=== PATIENT | male | born 1965 | race Caucasian/White ===

== ENCOUNTER 2017-07-10 18:13 | Emergency (ER) | payer OTHER ==
[2017-07-10 18:16] VITALS: BP 176/97; PULSE 96; RESP 18; TEMP 98.5; O2SAT 97
[2017-07-10] MEDS ORDERED: SODIUM CHLORIDE 0.9% FLUSH 10 ML FLUSH IVF PRN (18:45)
--- NOTE | 2017-07-10 19:17 | RADRPT ---
EXAM DATE/TIME: 07/10/2017 18:50 [place] COMPARISON: No previous studies available for comparison. INDICATIONS : Shortness of breath. MEDICAL HISTORY : None. SURGICAL HISTORY : None. ENCOUNTER: Initial ACUITY: 3 days PAIN SCORE: 0/10 LOCATION: Bilateral chest FINDINGS: A single view of the chest demonstrates the lungs to be symmetrically aerated without evidence of mas s, infiltrate or effusion. The cardiomediastinal contours are unremarkable. Osseous structures are intact. CONCLUSION: The lungs are clear. Tal Deshpande MD on July 10, 2017 at 19:15 Board Certified Radiologist. This report was verified electronically.
[2017-07-10 19:27] VITALS: O2SAT 98
[2017-07-10] MEDS ORDERED: methylPREDNISolone SOD SUCC 125 MG/2 ML VIAL IV PUSH ONE (19:30)
[2017-07-10] MEDS ORDERED: RESP: BUDESONIDE 0.5 MG/2 ML NEB NEB ONE (19:30)
[2017-07-10] MEDS: RESP: ALBUTEROL 2.5 MG/IPRATROPIUM 0.5 MG NEB (SCH) INH ×2 (19:46→19:47)
[2017-07-10 20:03] LABS: AUTOMATED NEUTROPHIL # 5.1 TH/MM3 (1.8-7.7); BASOPHIL # 0.1 TH/MM3 (0-0.2); BASOPHIL % 0.9 % (0.0-2.0); EOSINOPHIL # 0.3 TH/MM3 (0-0.4); EOSINOPHIL % 4.6 % (0.0-4.0); HEMATOCRIT 44.6 % (39.0-51.0); LYMPH % 19.2 % (9.0-44.0); LYMPHOCYTE # 1.4 TH/MM3 (1.0-4.8); MEAN CELL VOLUME 89.2 FL (80.0-100.0); MEAN CORPUSCULAR HEMOGLOBIN 30.1 PG (27.0-34.0); MEAN CORPUSCULAR HGB CONC 33.8 % (32.0-36.0); MEAN PLATELET VOLUME 9.4 FL (7.0-11.0); MONO % 7.1 % (0.0-8.0); MONOCYTE # 0.5 TH/MM3 (0-0.9); NEUT % 68.2 % (16.0-70.0); PLATELET COUNT 211 TH/MM3 (150-450); RED CELL DISTRIBUTION WIDTH 13.5 % (11.6-17.2); WHITE BLOOD COUNT 7.5 TH/MM3 (4.0-11.0)
[2017-07-10 20:29] LABS: ALBUMIN 3.7 GM/DL (3.4-5.0); AST (GOT) 17 U/L (15-37); BICARBONATE 25.5 MEQ/L (21.0-32.0); BLOOD UREA NITROGEN 16 MG/DL (7-18); CALCIUM 8.6 MG/DL (8.5-10.1); CHLORIDE 105 MEQ/L (98-107); CREATININE 1.15 MG/DL (0.60-1.30); GLOMERULAR FILTRATION RATE 67 ML/MIN (>89); GLUCOSE,RANDOM 97 MG/DL (74-106); SODIUM (NA) 140 MEQ/L (136-145)
[2017-07-10 20:33] LABS: ALKALINE PHOSPHATASE 59 U/L (45-117); ALT (GPT) 18 U/L (12-78); TOTAL PROTEIN 7.9 GM/DL (6.4-8.2)
[2017-07-10] MEDS ORDERED: PRED50 PO (21:10)
[2017-07-10] MEDS ORDERED: VENTAER INH (21:10)
[2017-07-10] MEDS ORDERED: AZIT250T3 PO (21:10)
--- NOTE | 2017-07-10 21:10 | PD ---
HPI Chief Complaint: Respiratory Distress Time Seen by Provider: 19:10 Travel History International Travel<30 days: No Contact w/Intl Traveler<30days: No Traveled to known affect area: No History of Present Illness HPI Patient is a 51-year-old male presenting to the emergency department evaluation of shortness of breath. Patient states it started 3 days ago after he was pressure washing. He reports an associated cough that is productive with clear sputum. He denies any fever, chills, sore throat, nasal congestion. He denies any significant past medical history. He has a history of tobacco use as well as significant exposure to secondhand smoke. [facility] Past Medical History Medical History: Denies Significant Hx Diminished Hearing: No Tetanus Vaccination: Unknown Influenza Vaccination: No Social History Alcohol Use: Yes Tobacco Use: No Substance Use: Yes (CANNABIS) Allergies-Medications (Allergen,Severity, Reaction): Coded Allergies: cat dander (Verified Allergy, Intermediate, 07/10/17) Reported Meds & Prescriptions Reported Meds & Active Scripts Active No Active Prescriptions or Reported Medications Review of Systems Except as stated in HPI: all other systems reviewed are Neg General / Constitutional: No: Fever HENT: No: Headaches Cardiovascular: No: Chest Pain or Discomfort Respiratory: Positive: Cough, Shortness of Breath, Wheezing Gastrointestinal: No: Nausea, Vomiting Physical Exam Narrative GENERAL: Well-developed, well-nourished, alert male. Resting comfortably in no acute distress. SKIN: Warm and dry. HEAD: Atraumatic. Normocephalic. EYES: Pupils equal and round. No scleral icterus. No injection or drainage. ENT: No nasal bleeding or discharge. Mucous membranes pink and moist. NECK: Trachea midline. No JVD. CARDIOVASCULAR: Regular rate and rhythm. RESPIRATORY: No accessory muscle use. Expiratory wheezes throughout. No increased work of breathing, no nasal flaring, no retractions noted. GASTROINTESTINAL: Abdomen soft, non-tender, nondistended. Hepatic and splenic margins not palpable. MUSCULOSKELETAL: Extremities without clubbing, cyanosis, or edema. No obvious deformities. NEUROLOGICAL: Awake and alert. No obvious cranial nerve deficits. Motor grossly within normal limits. Five out of 5 muscle strength in the arms and legs. Normal speech. PSYCHIATRIC: Appropriate mood and affect; insight and judgment normal. Data Data Last Documented VS Vital Signs Date Time Temp Pulse Resp B/P (MAP) Pulse Ox O2 Delivery O2 Flow Rate FiO2 12/19/17 19:27 98 Nasal Cannula 2.00 07/10/17 19:27 07/10/17 18:16 98.5 96 18 Orders Orders Complete Blood Count With Diff (07/10/17 18:41) Comprehensive Metabolic Panel (07/10/17 18:41) Iv Access Insert/Monitor (07/10/17 18:41) Ecg Monitoring (07/10/17 18:41) Oximetry (07/10/17 18:41) Oxygen Administration (07/10/17 18:41) Chest, Single Ap (07/10/17 18:41) Sodium Chloride 0.9% Flush (Ns Flush) (07/10/17 18:45) Methylprednisolone So Succ Inj (Solumedr (07/10/17 19:30) Albuterol-Ipratropium Neb (Duoneb Neb) (07/10/17 19:30) Budesonide Neb (Pulmicort Respule Neb) (07/10/17 19:30) Labs Laboratory Tests Test 07/10/17 19:18 White Blood Count 7.5 TH/MM3 Red Blood Count 5.00 MIL/MM3 Hemoglobin 15.0 GM/DL Hematocrit 44.6 % Mean Corpuscular Volume 89.2 FL Mean Corpuscular Hemoglobin 30.1 PG Mean Corpuscular Hemoglobin Concent 33.8 % Red Cell Distribution Width 13.5 % Platelet Count 211 TH/MM3 Mean Platelet Volume 9.4 FL Neutrophils (%) (Auto) 68.2 % Lymphocytes (%) (Auto) 19.2 % Monocytes (%) (Auto) 7.1 % Eosinophils (%) (Auto) 4.6 % Basophils (%) (Auto) 0.9 % Neutrophils # (Auto) 5.1 TH/MM3 Lymphocytes # (Auto) 1.4 TH/MM3 Monocytes # (Auto) 0.5 TH/MM3 Eosinophils # (Auto) 0.3 TH/MM3 Basophils # (Auto) 0.1 TH/MM3 CBC Comment DIFF FINAL Differential Comment Blood Urea Nitrogen 16 MG/DL Creatinine 1.15 MG/DL Random Glucose 97 MG/DL Total Protein 7.9 GM/DL Albumin 3.7 GM/DL Calcium Level 8.6 MG/DL Alkaline Phosphatase 59 U/L Aspartate Amino Transf (AST/SGOT) 17 U/L Alanine Aminotransferase (ALT/SGPT) 18 U/L Total Bilirubin 1.0 MG/DL Sodium Level 140 MEQ/L Potassium Level 3.6 MEQ/L Chloride Level 105 MEQ/L Carbon Dioxide Level 25.5 MEQ/L Anion Gap 10 MEQ/L Estimat Glomerular Filtration Rate 67 ML/MIN MDM Medical Decision Making Medical Screen Exam Complete: Yes Emergency Medical Condition: Yes Interpretation(s) Laboratory Tests Test 07/10/17 19:18 White Blood Count 7.5 TH/MM3 Red Blood Count 5.00 MIL/MM3 Hemoglobin 15.0 GM/DL Hematocrit 44.6 % Mean Corpuscular Volume 89.2 FL Mean Corpuscular Hemoglobin 30.1 PG Mean Corpuscular Hemoglobin Concent 33.8 % Red Cell Distribution Width 13.5 % Platelet Count 211 TH/MM3 Mean Platelet Volume 9.4 FL Neutrophils (%) (Auto) 68.2 % Lymphocytes (%) (Auto) 19.2 % Monocytes (%) (Auto) 7.1 % Eosinophils (%) (Auto) 4.6 % Basophils (%) (Auto) 0.9 % Neutrophils # (Auto) 5.1 TH/MM3 Lymphocytes # (Auto) 1.4 TH/MM3 Monocytes # (Auto) 0.5 TH/MM3 Eosinophils # (Auto) 0.3 TH/MM3 Basophils # (Auto) 0.1 TH/MM3 CBC Comment DIFF FINAL Differential Comment Blood Urea Nitrogen 16 MG/DL Creatinine 1.15 MG/DL Random Glucose 97 MG/DL Total Protein 7.9 GM/DL Albumin 3.7 GM/DL Calcium Level 8.6 MG/DL Alkaline Phosphatase 59 U/L Aspartate Amino Transf (AST/SGOT) 17 U/L Alanine Aminotransferase (ALT/SGPT) 18 U/L Total Bilirubin 1.0 MG/DL Sodium Level 140 MEQ/L Potassium Level 3.6 MEQ/L Chloride Level 105 MEQ/L Carbon Dioxide Level 25.5 MEQ/L Anion Gap 10 MEQ/L Estimat Glomerular Filtration Rate 67 ML/MIN Vital Signs Date Time Temp Pulse Resp B/P (MAP) Pulse Ox O2 Delivery O2 Flow Rate FiO2 07/10/17 19:27 98 Nasal Cannula 2.00 07/10/17 19:27 98 Nasal Cannula 2.00 07/10/17 18:38 96 Room Air 07/10/17 18:16 98.5 96 18 176/97 (123) 97 Room Air Differential Diagnosis Bronchitis versus pneumonia versus reactive airway disease versus other Narrative Course Patient's 51-year-old male presenting to emergency for evaluation of shortness of breath, wheezing and a cough that has been ongoing for 3 days. He reports a history of the same several months ago, he denies any history of asthma or COPD although he does smoke tobacco products and marijuana occasionally as well as being exposed to secondhand smoke throughout his childhood. Patient's vital signs are stable, she will need on room air. There is expiratory wheezes throughout. DuoNeb, budesonide, Solu-Medrol ordered. Chest x-ray is ordered and pending. Chest x-ray was read by the radiologist shows no acute disease. Labs reviewed, no acute abnormalities identified. Patient was reassessed after nebulizer treatment, lung sounds significantly improved with no wheezing noted on exam. Discussed with patient that he likely has a reactive airway disease whether from allergens or early COPD. He was encouraged to avoid tobacco use. He was further encouraged follow-up with his primary doctor for possible pulmonary function testing. Patient will be given a prescription for an albuterol inhaler , oral steroids and an antibiotic. He was encouraged to return to emergency department for any new or worsening symptoms. Patient verbalized understanding of these instructions. Patient is stable for discharge. Diagnosis Primary Impression: Reactive airway disease Qualified Codes: J45.909 - Unspecified asthma, uncomplicated Referrals: Primary Care Physician 1 week Patient Instructions: General Instructions, Pulmonary Function Tests (GEN), Reactive Airways Disease (ED) Additional Instructions: Take medications as directed Follow-up with your primary doctor or nut sheller for further testing Return to emergency department for any new or worsening symptoms Med/Other Pt SpecificInfo: Prescription(s) given Scripts Azithromycin (Azithromycin) 250 Mg Tab 250 MG PO DIRECTED for Infection, #6 TAB 0 Refills Take 2 tabs (500 mg) on day 1 then 1 tab daily x 4 days. Prov: Jackie Leon 07/10/17 Prednisone (Prednisone) 50 Mg Tab 50 MG PO DAILY for 5 Days, #5 TAB 0 Refills Prov: Jackie Leon 07/10/17 Albuterol 18 GM Inh (Ventolin Hfa 18 GM Inh) 90 Mcg/Act Aer 2 PUFF INH Q4-6H Y for SHORTNESS OF BREATH, #1 INHALER 0 Refills Prov: Jackie Leon 07/10/17 Disposition: 01 DISCHARGE HOME Condition: Stable Jackie Leon Jul 10, 2017 21:10
[2017-07-10 21:27] VITALS: BP 132/83; PULSE 81; RESP 18; O2SAT 100
== END 2017-07-10 21:55 | disposition home or self-care (01) ==
LOC: NEPE 18:13
DX: J45.909 Unspecified asthma, uncomplicated (principal); Z87.891 Personal history of nicotine dependence
CPT/HCPCS: 71010; 80053; 85025; 94640; 94664; 96374; 99284; J2930; J7626